=== PATIENT | female | born 1995 | race Two or more races ===

== ENCOUNTER 2019-11-07 17:42 | Emergency (ER) | payer MEDICAID ==
[2019-11-07] MEDS ORDERED: HYDROmorphone 0.5 MG/0.5 ML Syringe IVPUSH ONE ×2 (18:54→20:01)
[2019-11-07] MEDS ORDERED: Ondansetron 4 MG/2 ML SDV IVPUSH ONE (18:54)
[2019-11-07] MEDS ORDERED: Sodium Chloride 0.9% 10 ML Syringe FLUSH PRN ×2 (18:55→20:43)
[2019-11-07] MEDS ORDERED: Sodium Chloride 0.9% 1,000 ML IV SCH (19:00)
[2019-11-07] MEDS ORDERED: LORazepam 2 MG/ML SDV IVPUSH ONE (19:14)
--- NOTE | 2019-11-07 19:15 | EDM.PDOC ---
<Scarlett Palmer - Last Filed: 11/07/19 18:56> ED HPI GENERAL MEDICAL PROBLEM - General Chief Complaint: Chest Pain Stated Complaint: CHEST PAIN/HEAD PAIN Time Seen by Provider: 11/07/19 18:24 Source of Information: Reports: Patient History Limitations: Reports: No Limitations - History of Present Illness INITIAL COMMENTS - FREE TEXT/NARRATIVE: Patient is a pleasant 24-year-old female with a history of anxiety and migraines presents to the ED for migraine and chest pain. She reports that she has had a migraine headache all day and has been keeping it under control with Tylenol and Aleve. Then about an hour prior to arrival her migraine suddenly returned and was sharp, stabbing, and throbbing. The pain was not located in a specific area, rather the entire head. She rates the migraine at a 9/10 and states this is the worst migraine she has ever had. She states when the pain suddenly occurred her vision went blurry and has remained blurry for the past hour. When the migraine pain increased she developed chest pain. She states the chest pain started over the middle of her chest and now is radiating into bilateral axilla. It has been a constant, sharp 8/10 pain with spasms that increase the severity to 10/10 for 30-60 seconds. She says the spasm pain comes on suddenly and feels as if someone is squeezing her chest. The pain spasms more on the right than the left. Nausea developed when the migraine pain increased. She is not currently on any form of oral contraceptives. She thinks her last menstrual period was about a month ago, but is unsure since it is irregular. She states there could be a chance she is , but is unsure. Denies shortness of breath and recent illnesses. Middle Chest Pain Score (Numeric/FACES): 10 - Related Data Allergies Allergy/AdvReac Type Severity Reaction Status Date / Time amoxicillin Allergy Hives Verified 11/07/19 17:58 azithromycin [From Zithromax] Allergy Hives Verified 11/07/19 17:58 butalbital [From Fioricet] Allergy Hives Verified 11/07/19 17:58 caffeine [From Fioricet] Allergy Hives Verified 11/07/19 17:58 cephalexin [From Keflex] Allergy Hives Verified 11/07/19 17:58 clindamycin Allergy Hives Verified 02/19/20 17:58 diphenhydramine Allergy Burning Verified 11/07/19 17:58 [From Benadryl] ketorolac [From Toradol] Allergy Hives Verified 11/07/19 17:58 Penicillins Allergy Hives Verified 11/07/19 17:58 Home Meds: Home Meds QUEtiapine Fumarate [Seroquel] 200 mg PO BEDTIME 11/07/19 [History] Past Medical History HEENT History: Reports: None Cardiovascular History: Reports: None Respiratory History: Reports: None Gastrointestinal History: Reports: None STRATEGIC PLANNER History: Reports: None Musculoskeletal History: Reports: None Neurological History: Reports: None Psychiatric History: Reports: Anxiety Endocrine/Metabolic History: Reports: Obesity/BMI 30+ Hematologic History: Reports: None Immunologic History: Reports: None Oncologic (Cancer) History: Reports: None Dermatologic History: Reports: Other (See Below) Other Dermatologic History: 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 Denies: Fever, Chills, Weakness, Decreased Appetite HEENT: Reports: Vision Change (blurry). Denies: Ear Pain, Eye Pain, Throat Pain , Vertigo Respiratory: Reports: No Symptoms. Denies: Shortness of Breath, Cough Cardiovascular: Reports: Chest Pain (sternal that radiates to bilateral axilla) , Lightheadedness. Denies: Edema, Syncope GI/Abdominal: Reports: Nausea. Denies: Abdominal Pain, Diarrhea, Vomiting Musculoskeletal: Reports: No Symptoms. Denies: Neck Pain, Back Pain, Muscle Pain Skin: Reports: No Symptoms. Denies: Rash, Erythema Neurological: Reports: Headache (severe- generalized whole head). Denies: Dizziness, Numbness, Syncope, Tingling, Weakness Psychiatric: Reports: Anxiety ED EXAM, GENERAL - Physical Exam Exam: See Below Exam Limited By: No Limitations General Appearance: Alert, WD/WN, Mild Distress Eye Exam: Bilateral Eye: Normal Inspection, PERRL Nose: Normal Inspection, Normal Mucosa, No Blood Head: Atraumatic, Normocephalic. No: Facial Tenderness, Sinus Tenderness Neck: Normal Inspection, Supple, Non-Tender, Full Range of Motion Respiratory/Chest: No Respiratory Distress, Lungs Clear, Normal Breath Sounds, No Accessory Muscle Use, Chest Non-Tender Cardiovascular: Normal Peripheral Pulses, No Edema, No Murmur, No Rub, Tachycardia GI/Abdominal: Normal Bowel Sounds, Soft, Non-Tender, No Organomegaly, No Distention, No Mass Back Exam: Normal Inspection, Full Range of Motion, NT Extremities: Normal Inspection, Normal Range of Motion, Non-Tender, Normal Capillary Refill, No Pedal Edema Neurological: Alert, Oriented, Normal Cognition, Normal Gait, No Motor/Sensory Deficits Psychiatric: Normal Affect, Anxious Skin Exam: Warm, Dry, Intact, Normal Color, No Rash Lymphatic: No Adenopathy Course - Vital Signs Last Recorded V/S: Last Vital Signs Temp 98.4 F 11/07/19 17:51 Pulse 110 H 11/07/19 17:51 Resp 18 11/07/19 17:51 BP 131/87 11/07/19 17:51 Pulse Ox 98 11/07/19 17:51 - Orders/Labs/Meds Orders: Active Orders 24 hr Category Date Time Status EKG Documentation Completion [RC] STAT Care 11/07/19 18:24 Active EKG Documentation Completion [RC] STAT Care 11/07/19 18:54 Active Peripheral IV Care [RC] . DIRECTED Care 11/07/19 18:55 Active Peripheral IV Insertion Adult [OM.PC] Stat Oth 11/07/19 18:51 Ordered Labs: Laboratory Tests 11/07/19 11/07/19 11/07/19 Range/Units 19:47 19:47 19:47 WBC 9.92 (3.98-10.04) K/mm3 RBC 4.23 (3.98-5.22) M/mm3 Hgb 10.9 L (11.2-15.7) gm/dl Hct 34.6 (34.1-44.9) % MCV 81.8 (79.4-94.8) fl MCH 25.8 (25.6-32.2) pg MCHC 31.5 L (32.2-35.5) g/dl RDW Std Deviation 39.1 (36.4-46.3) fL Plt Count 346 (182-369) K/mm3 MPV 9.2 L (9.4-12.3) fl Neut % (Auto) 65.9 (34.0-71.1) % Lymph % (Auto) 26.5 (19.3-51.7) % [place] % (Auto) 6.5 (4.7-12.5) % Eos % (Auto) 0.7 (0.7-5.8) Baso % (Auto) 0.2 (0.1-1.2) % Neut # (Auto) 6.54 H (1.56-6.13) K/mm3 Lymph # (Auto) 2.63 (1.18-3.74) K/mm3 [place] # (Auto) 0.64 H (0.24-0.36) K/mm3 Eos # (Auto) 0.07 (0.04-0.36) K/mm3 Baso # (Auto) 0.02 (0.01-0.08) K/mm3 D-Dimer, Quantitative 1.73 H (0.19-0.50) mg/L Sodium 141 (136-145) mEq/L Potassium 3.8 (3.5-5.1) mEq/L Chloride 104 (98-107) mEq/L Carbon Dioxide 25 (21-32) mEq/L Anion Gap 15.8 H (5-15) BUN 18 (7-18) mg/dL Creatinine 0.9 (0.55-1.02) mg/dL Est Cr Clr Drug Dosing 76.23 mL/min Estimated GFR (MDRD) > 60 (>60) mL/min BUN/Creatinine Ratio 20.0 H (14-18) Glucose 105 (74-106) mg/dL Calcium 8.7 (8.5-10.1) mg/dL Total Bilirubin 0.2 (0.2-1.0) mg/dL AST 18 (15-37) U/L ALT 26 (14-59) U/L Alkaline Phosphatase 93 (46-116) U/L Troponin I < 0.017 (0.00-0.056) ng/mL Total Protein 7.4 (6.4-8.2) g/dl Albumin 3.2 L (3.4-5.0) g/dl Globulin 4.2 gm/dL Albumin/Globulin Ratio 0.8 L (1-2) Meds: Medications Discontinued Medications Generic Name Dose Route Start Last Admin Trade Name Freq PRN Reason Stop Dose Admin Diazepam 2.5 mg 11/07/19 20:57 11/07/19 21:06 Valium IVPUSH 11/07/19 20:58 2.5 mg ONETIME ONE Administration Fentanyl 50 mcg 11/07/19 20:29 11/07/19 20:37 Sublimaze IVPUSH 11/07/19 20:30 50 mcg ONETIME ONE Administration Hydromorphone HCl 0.5 mg 11/07/19 18:54 11/07/19 19:37 Dilaudid IVPUSH 11/07/19 18:55 0.5 mg ONETIME ONE Administration Hydromorphone HCl 0.5 mg 11/07/19 20:01 11/07/19 20:05 Dilaudid IVPUSH 11/07/19 20:02 0.5 mg ONETIME ONE Administration Sodium Chloride 1,000 mls @ 999 mls/hr 11/07/19 19:00 11/07/19 19:36 Normal Saline IV 999 mls/hr ASDIRECTED SLIME Administration Sodium Chloride 100 mls @ 3 mls/sec 11/07/19 20:45 11/07/19 21:00 Normal Saline IV 3 mls/sec ASDIRECTED SLIME Administration Iopamidol 100 ml 11/07/19 20:43 11/07/19 21:00 Isovue-370 (76%) IVPUSH 11/07/19 20:44 100 ml ONETIME ONE Administration Lorazepam 0.5 mg 11/07/19 19:14 11/07/19 19:37 Ativan IVPUSH 11/07/19 19:15 0.5 mg ONETIME ONE Administration Ondansetron HCl 4 mg 11/07/19 18:54 11/07/19 19:37 Zofran IVPUSH 11/07/19 18:55 4 mg ONETIME ONE Administration Sodium Chloride 10 ml 11/07/19 18:55 11/07/19 19:36 Saline Flush FLUSH 10 ml ASDIRECTED PRN Administration Keep Vein Open Sodium Chloride 10 ml 11/07/19 20:43 11/07/19 21:00 Saline Flush FLUSH 10 ml ASDIRECTED PRN Administration Keep Vein Open Departure - Departure Disposition: Home, Self-Care 01 Clinical Impression: Atypical chest pain Migraine Qualifiers: Migraine type: unspecified Status migrainosus presence: without status migrainosus Intractability: not intractable Qualified Code(s): G43.909 - Migraine, unspecified, not intractable, without status migrainosus Instructions: Chest Wall Pain, Migraine Headache Referrals: PCP,None [Primary Care Provider] - Forms: ED Department Discharge Additional Instructions: You were seen in the emergency department today for migraine, anxiety, and spasming chest pain. You work-up included blood work, EKG of your heart, chest x-ray, head CT, and a chest CT. The results of this testing was all normal Your symptoms were drastically improved by the medications that were given. You have been provided with [facility] prescription for Ativan, as well as Percocet. Use these medications as needed to treat your anxiety and pain. Do not drive after taking these medications as they are sedating. Do not take these medications at the same time as the combined effect may also be overly sedating. As we discussed, it is important for you to call to establish care with a primary care provider for ongoing management of your chronic migraines and other neurologic symptoms. If you should experience any worsening symptoms , please do not hesitate to return to the emergency department. Sepsis Event Note - Evaluation Sepsis Screening Result: No Definite Risk - Focused Exam Date Exam was Performed: 11/07/19 Time Exam was Performed: 18:56 - My Orders Last 24 Hours: My Active Orders 11/07/19 18:24 EKG Documentation Completion [RC] STAT 11/07/19 18:51 Peripheral IV Insertion Adult [OM.PC] Stat 11/07/19 18:54 EKG Documentation Completion [RC] STAT 11/07/19 18:55 Peripheral IV Care [RC] . DIRECTED - Assessment/Plan Last 24 Hours: My Active Orders 11/07/19 18:24 EKG Documentation Completion [RC] STAT 11/07/19 18:51 Peripheral IV Insertion Adult [OM.PC] Stat 11/07/19 18:54 EKG Documentation Completion [RC] STAT 11/07/19 18:55 Peripheral IV Care [RC] . DIRECTED <Marinelli,Bonny - Last Filed: 11/08/19 10:46> EKG INTERPRETATION EKG Date: 11/07/19 Time: 18:45 Rhythm: NSR Rate (Beats/Min): 89 [place]: Normal P-Wave: Present QRS: Normal ST-T: Normal QT: Normal EKG Interpretation Comments: Short RENEE EKG interpreted by Dr. Jessica MD. Course - Re-Assessments/Exams Free Text/Narrative Re-Assessment/Exam: I have examined the patient and agree with the HPI, ROS, and physical exam as documented by Scarlett, AIRFRAME TECHNICAL OFFICER student. 11/07/19 20:38 Patient verbalizes that her headache is now an 8 out of 10, however she has no improvement in the spasms in her chest. States that this time she is having left chest spasms radiating down her left leg, which is a change from previously as her spasms were previously in her right chest wall. After discussion, patient has had similar episodes in the past with her migraines where pain has shot down her bilateral legs. She says it pain is generally not is localized to the chest as it is this time. Reviewed possible treatment options of Haldol, Reglan, and Imitrex. She states that she has had all these medications in the past and that "they all made her "crazy ". Her d-dimer did come back elevated at 1.74. She denies any pain or swelling in her lower extremities. We will complete a CT angio of her chest to rule out a PE. I have also ordered fentanyl 50 mcg to be given now. 11/07/19 21:48 CT Angio of the chest was negative for any pulmonary emboli. Patient was also given Valium 2.5 mg IV to help with the muscle spasms. She verbalized substantial relief of symptoms with a combination of fentanyl and Valium. She does still have some mild chest wall tenderness, however her anxiety, headache and the spasms are much better. She feels comfortable being discharged at this time. I will discharge her home with [facility] prescription for Ativan and Percocets. She was provided with a list of primary care providers to call in the morning and schedule an appointment to establish care for ongoing treatment of her chronic migraines. Discharge instructions as documented. Departure - Departure Time of Disposition: 21:50 Condition: Fair Sepsis Event Note - Focused Exam Date Exam was Performed: 11/08/19 Time Exam was Performed: 10:44
--- NOTE | 2019-11-07 19:41 | CT ---
Head CT Technique: Multiple axial sections through the brain were obtained. Intravenous contrast was not utilized. Comparison: No intracranial imaging is available. Air-fluid levels are seen within both maxillary sinuses. Mild mucosal thickening is seen within the ethmoid sinuses. Ventricles along with basal cisterns and sulci over the convexities are within normal limits for the patient's age. No abnormal parenchymal densities are seen. No evidence of intracranial hemorrhage. No midline shift or mass effect is appreciated. Bone window settings were reviewed. No acute calvarial abnormality is appreciated. Mastoid sinuses are clear. Impression: 1. Findings within the paranasal sinuses as described above which are suspicious for acute sinusitis. 2. No acute intracranial abnormality is identified. Diagnostic code #3 Study was dictated in [place] Standard Time
--- NOTE | 2019-11-07 20:07 | CR ---
Chest: 2 views of the chest were obtained. Comparison: No prior chest x-ray is available. Heart size and mediastinum are normal. Lungs are clear. Bony structures are unremarkable. Impression: 1. Nothing acute is appreciated on 2 view chest x-ray. Diagnostic code #1 Study was dictated in [place] Standard Time
[2019-11-07] MEDS ORDERED: fentaNYL 100 MCG/2 ML SDV IVPUSH ONE (20:29)
[2019-11-07] MEDS ORDERED: Iopamidol 755 Mg/ML 100 ML Bottle IVPUSH ONE (20:43)
[2019-11-07] MEDS ORDERED: Sodium Chloride 0.9% 100 ML IV SCH (20:45)
--- NOTE | 2019-11-08 07:19 | CT ---
CT chest Technique: Multiple axial sections through the chest were obtained. Study has been performed as a pulmonary angiogram protocol. Intravenous contrast was therefore utilized. Comparison: Prior chest x-ray performed earlier on the same day (7:09 PM). Findings: Pulmonary arteries are well opacified. No filling defects are seen to indicate pulmonary embolism. Aorta shows no aneurysm. Mediastinum shows no adenopathy. Soft tissue density within the anterior mediastinum is likely due to residual thymic tissue. No pericardial thickening is seen. Visualized upper abdominal structures appear within normal limits. Lungs otherwise are clear. No acute parenchymal change is appreciated. Bone window settings were reviewed which appear within normal limits for the patient's age. Impression: 1. Nothing is seen to indicate pulmonary embolism. 2. No acute abnormality is appreciated on CT study of the chest. Diagnostic code #1 This report was dictated in [place] Standard Time I agree with preliminary report from [facility], finalized on 11/07/19, 10:27 PM Central Time
== END 2019-11-07 22:15 | disposition home or self-care (01) ==
LOC: JD.ED 17:42
DX: G43.909 Migraine, unspecified, not intractable, without status migrainosus (principal); R07.89 Other chest pain; F17.210 Nicotine dependence, cigarettes, uncomplicated; E66.9 Obesity, unspecified; Z68.31 Body mass index [BMI] 31.0-31.9, adult; Z88.0 Allergy status to penicillin; Z88.1 Allergy status to other antibiotic agents; Z88.8 Allergy status to other drugs, medicaments and biological substances; Z88.6 Allergy status to analgesic agent
CPT/HCPCS: 36415; 70450; 71046; 71275; 80053; 84484; 85025; 85379; 93005; 96361; 96374; 96375; 99285; J1170; J2060; J2405; J3010; J3360; J7030; J7050; Q9967; 93010; 99284

== ENCOUNTER 2019-11-12 23:02 | Emergency (ER) | payer SELFPAY ==
--- NOTE | 2019-11-13 00:27 | EDM.PDOC ---
ED HPI GENERAL MEDICAL PROBLEM - General Chief Complaint: Chest Pain Stated Complaint: CHEST PAIN Time Seen by Provider: 11/13/19 00:26 Source of Information: Reports: Patient History Limitations: Reports: No Limitations - History of Present Illness INITIAL COMMENTS - FREE TEXT/NARRATIVE: 24-year-old female presents of the ED with diffuse anterior chest wall pain. No known injuries. She states it came on about 6 days ago and was somewhat better with treatment with Percocet tablets and Ativan that were prescribed through the ED on November 07. Her medication ran out 2 days ago and the pain returned with a vengeance. She states it hurts to breathe everywhere. She had a full work-up done including a CT angiogram of her chest which was negative for blood clot in spite of a slightly elevated d-dimer. No other abnormalities were appreciated on cardiac monitoring etc. She reports the pain is sharp and stabbing at times and then leaves her with a dull diffuse aching discomfort across her entire chest particular in the central chest. She has no true odynophagia. There is been no reflux or vomiting. She has never had anything similar. She does admit to a chronic generalized anxiety disorder. Onset: Gradual Onset Date: 11/07/19 Duration: Day(s):, Constant, Getting Worse Location: Reports: Chest (Entire anterior chest even up to her shoulders. Nothing rating through to her back.) Quality: Reports: Pressure (Constant pressure across her anterior chest particular in the midline behind the sternum.), Sharp (Sharp and stabbing at times and comes in spasm or waves.), Stabbing Severity: Severe (The pain is 10 out of 10) Improves with: Reports: Other (Ports pain was pretty well gone with taking the Percocet and Ativan the last 4 days.) Worsens with: Reports: Breathing, Other Context: Denies: Activity, Exercise (Coughing), Lifting, Sick Contact, Trauma Associated Symptoms: Reports: Chest Pain, Loss of Appetite, Malaise, Shortness of Breath. Denies: No Other Symptoms, Confusion (See history of present illness ), Cough, cough w sputum, Diaphoresis, Fever/Chills, Headaches, Rash (States no shortness of breath is deep breathing makes the pain worse), Seizure, Syncope, Weakness Treatments JIGSAWYER: Reports: Acetaminophen, NSAIDS (Advil without any relief.) Chest Pain Score (Numeric/FACES): 10 - Related Data Allergies Allergy/AdvReac Type Severity Reaction Status Date / Time amoxicillin Allergy Hives Verified 11/12/19 23:10 azithromycin [From Zithromax] Allergy Hives Verified 11/12/19 23:10 butalbital [From Fioricet] Allergy Hives Verified 11/12/19 23:10 caffeine [From Fioricet] Allergy Hives Verified 11/12/19 23:10 cephalexin [From Keflex] Allergy Hives Verified 11/12/19 23:10 clindamycin Allergy Hives Verified 11/12/19 23:10 diphenhydramine Allergy Burning Verified 11/12/19 23:10 [From Benadryl] ketorolac [From Toradol] Allergy Hives Verified 11/12/19 23:10 Penicillins Allergy Hives Verified 11/12/19 23:10 Home Meds: Home Meds QUEtiapine Fumarate [Seroquel] 200 mg PO BEDTIME 11/07/19 [History] Diclofenac Sodium [Voltaren] 75 mg PO BIDMEALS #20 tab.cr 11/13/19 [Rx] LORazepam [Ativan] 1 mg PO TID PRN #30 tablet 11/13/19 [Rx] oxyCODONE HCl/Acetaminophen [Percocet 5-325 mg Tablet] 1 - 2 each PO Q4H PRN # 20 tablet 11/13/19 [Rx] predniSONE [Prednisone] 20 mg PO ASDIRECTED #21 tablet 11/13/19 [Rx] Past Medical History HEENT History: Reports: None Cardiovascular History: Reports: None Respiratory History: Reports: None Gastrointestinal History: Reports: None AREA ATTENDANT History: Reports: None Musculoskeletal History: Reports: None Neurological History: Reports: None Psychiatric History: Reports: Anxiety, Bipolar, Other (See Below) (Take Seroquel 200 mg at bedtime to help sleep) Endocrine/Metabolic History: Reports: Obesity/BMI 30+ Hematologic History: Reports: None Immunologic History: Reports: None Oncologic (Cancer) History: Reports: None Dermatologic History: Reports: Other (See Below) Other Dermatologic History: 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 Denies : Fever, Chills, Weight Loss HEENT: Reports: No Symptoms Respiratory: Reports: Shortness of Breath, Pleuritic Chest Pain, Other (Is sharp and stabbing in anterior chest and not necessarily pleuritic. It is made worse by deep breathing however. Otherwise the pain is a constant pressure sensation central chest and radiating towards the). Denies: Wheezing, Cough, Sputum, Hemoptysis Cardiovascular: Reports: Chest Pain. Denies: Edema, Lightheadedness, Orthopnea , Palpitations, PND, Syncope, Other Endocrine: Reports: Fatigue GI/Abdominal: Reports: Decreased Appetite : Reports: No Symptoms Musculoskeletal: Reports: Other (Bilateral anterior chest) Skin: Reports: No Symptoms ( wall pain) Neurological: Reports: No Symptoms, Headache Psychiatric: Reports: Anxiety (Prone to migraine headaches. Anxiety disorder.) Hematologic/Lymphatic: Reports: No Symptoms Immunologic: Reports: No Symptoms ED EXAM, GENERAL - Physical Exam Exam: See Below Exam Limited By: No Limitations General Appearance: Alert, WD/WN, Anxious, Severe Distress, Other (Reports chest pain is 10 out of 10 and unrelenting. Her presentation is fairly dramatic. Temperature is 36.3. Heart rate [address] [place] [address] rate is 18 with a blood pressure of 126/98. O2 sats 100% on room air.) Eye Exam: Bilateral Eye: Normal Inspection Throat/Mouth: Normal Inspection, Normal Lips, Normal Oropharynx Head: Atraumatic, Normocephalic Neck: Normal Inspection, Supple, Non-Tender, Full Range of Motion. No: Lymphadenopathy (L), Lymphadenopathy (R), Thyromegaly Respiratory/Chest: No Respiratory Distress, Lungs Clear, Normal Breath Sounds, No Accessory Muscle Use, Other (Has diffuse anterior chest wall pain in the midclavicular line ribs 2-7 bilaterally are intensely tender to touch. Maximal point of tenderness is rib 4 bilaterally and travels out to the anterior and mid axillary line by left is worse than the right. Bra use and she does not use underwire bra). No: Respiratory Distress Cardiovascular: Normal Peripheral Pulses, Regular Rate, Rhythm, No Edema, No Gallop, No Murmur, No Rub Peripheral Pulses: 3+: Carotid (L), Carotid (R), Posterior Tibial (L), Posterior Tibial (R), Dorsalis Pedis (L), Dorsalis Pedis (R) GI/Abdominal: Normal Bowel Sounds, Soft, Non-Tender, No Organomegaly, No Abnormal Bruit, No Mass, Pelvis Stable Back Exam: Normal Inspection, Full Range of Motion. No: CVA Tenderness (L), CVA Tenderness (R) Extremities: Normal Inspection, Normal Range of Motion, Non-Tender, No Pedal Edema Neurological: Alert, Oriented, CN II-XII Intact, Normal Cognition Psychiatric: Anxious Skin Exam: Warm, Dry, Intact, Normal Color, No Rash EKG INTERPRETATION EKG Date: 11/13/19 Time: 00:04 Rhythm: NSR Rate (Beats/Min): 100 [place]: Normal P-Wave: Enlarged QRS: Normal ST-T: Normal (Sitter left atrial hypertrophy.) QT: Normal EKG Interpretation Comments: Otherwise normal ECG Course - Vital Signs Last Recorded V/S: Last Vital Signs Temp 36.3 C 11/12/19 23:09 Pulse 109 H 11/12/19 23:09 Resp 18 11/12/19 23:09 BP 126/98 H 11/12/19 23:09 Pulse Ox 100 11/12/19 23:09 - Orders/Labs/Meds Orders: Active Orders 24 hr Category Date Time Status EKG Documentation Completion [RC] STAT Care 11/13/19 00:00 Active Chest 1V Frontal [CR] Stat Exams 11/12/19 23:59 Taken LORazepam [Ativan] Med 11/13/19 21:00 Active 1 mg PO BEDTIME Medication Orders Lorazepam (Ativan) 1 mg PO BEDTIME SLIME Meds: Medications Generic Name Dose Route Start Last Admin Trade Name Freq PRN Reason Stop Dose Admin Lorazepam 1 mg 11/13/19 21:00 Ativan PO BEDTIME SLIME Discontinued Medications Generic Name Dose Route Start Last Admin Trade Name Freq PRN Reason Stop Dose Admin Hydromorphone HCl 1.5 mg 11/13/19 00:52 11/13/19 01:02 Dilaudid IM 11/13/19 00:53 1.5 mg ONETIME ONE Administration Lorazepam Confirm 11/13/19 01:14 11/13/19 01:19 Ativan Administered 11/13/19 01:15 Not Given Dose 1 mg .ROUTE .STK-MED ONE Lorazepam 1 mg 11/13/19 01:18 11/13/19 01:19 Ativan PO 11/13/19 01:19 1 mg ONETIME ONE Administration Prednisone 30 mg 11/13/19 00:52 11/13/19 01:03 Prednisone PO 11/13/19 00:53 30 mg ONETIME ONE Administration Promethazine HCl 25 mg 11/13/19 00:53 11/13/19 01:03 Phenergan IM 11/13/19 00:54 25 mg ONETIME ONE Administration - Radiology Interpretation Free Text/Narrative:: 24-year-old female presents to the ED with diffuse anterior chest wall pain. Patient had presentation to the ED on November 07 with similar findings. She had an intensive work-up carried out by Bonny Marinelli nurse practitioner without any positive findings. She did have a mildly elevated d-dimer which precipitated a CT pulmonary angiogram which proved to be negative for any pulmonary emboli. On examination today her pain is definitely chest wall in origin with marked tenderness to touch on ribs 2-7 bilaterally with ribs 4 being the maximal point of tenderness bilaterally. Chest wall pain is seem to be worse on the left side as compared to the right. The left fourth rib pain extended out to the mid axillary line on the left side. Chest x-ray will be done and ECG to be done. I would not repeat labs as they were just done a few days ago. I think the cause of the pain is quite obvious on clinical examination. Will be given IM injection of Dilaudid 1.5 mg with Phenergan 25 mg IM for acute pain and nausea relief and anxiety relief. - Re-Assessments/Exams Free Text/Narrative Re-Assessment/Exam: 11/13/19 00:26 portable chest x-ray is within normal limits. ECG also reveals sinus rhythm at 100/min with no abnormalities. 11/13/19 01:!0: Be given prednisone 30 mg by mouth now to try and alleviate the inflammation in her anterior chest wall. Prescription will be written for prednisone 20 mg twice daily for 7 days and then 1 tab in the morning for another 7 days since her pain and inflammation seem to be so severe. Prescription also written for Voltaren 75 mg twice daily with food for the next 10 days to relieve pain and inflammation. Prescription written also for Ativan 1 mg to be taken every 8 hours as needed for anxiety relief. Will also receive Percocet tabs 5/325 mg tabs 1-2 every 4-6 hours as necessary for pain relief for the next 3 to 4 days until the anti-inflammatories become effective. Advised follow-up with her primary care physician in 7 to 10 days time. Departure - Departure Time of Disposition: : Disposition: Home, Self-Care 01 Condition: Fair Clinical Impression: Non-cardiac chest pain, Acute chest wall pain Prescriptions: Diclofenac Sodium [Voltaren] 75 mg PO BIDMEALS #20 tab.cr LORazepam [Ativan] 1 mg PO TID PRN #30 tablet PRN Reason: anxiety relief oxyCODONE HCl/Acetaminophen [Percocet 5-325 mg Tablet] 1 - 2 each PO Q4H PRN # 20 tablet PRN Reason: pain relief. predniSONE [Prednisone] 20 mg PO ASDIRECTED #21 tablet Instructions: Chest Wall Pain, [id number], Nonspecific Chest Pain, Easy-to- Read Referrals: PCP,None [Primary Care Provider] - Forms: ED Department Discharge Additional Instructions: Evaluation in the emergency room night in regards to diffuse anterior chest wall pain. You have point tenderness on palpation of ribs 2-7 bilaterally in the midclavicular line indicating significant inflammation of the lining of the ribs called the periosteum. This is almost always a viral cause calls by either echovirus or coxsackievirus infection. It is often associate with sharp stabbing chest pains with a dull aching pressure discomfort left afterwards. Will be aggravated by deep breathing or exercise. X-ray done once again tonight is negative for any obvious inflammation or abnormalities in the ribs heart or lungs. ECG or heart tracing was also completely normal with no signs of inflammation of the heart lining. Examanation was found to be very tender of the anterior chest. Treated in the ED with intramuscular injection of Dilaudid and Phenergan to relieve acute pain and to facilitate some sleep tonight. First dose of prednisone was given in the ED 30 mg. To continue this medication 20 mg twice daily with breakfast and supper for 7 days and then once in the morning only for another 7 days to reduce the inflammation in the lining of the ribs of your chest wall. You will also need to take anti-inflammatory Voltaren 75 mg with breakfast and supper for the next 10 days to relieve pain and inflammation in the chest wall as well. I have written a prescription for Ativan tablets 1 mg every 8 hours as needed for relief of anxiety. The symptoms last longer than 10 to 12 days that you need to follow-up with your primary care physician.May use Percocet tabs 5/325mg--1-2 tabs every 4-6 hours as needed for relief of pain until the anti-inflammatories become effective. Suggest follow-up with your primary care physician in 7-10 days time to make sure that you are on the mend. Sepsis Event Note - Evaluation Sepsis Screening Result: No Definite Risk - Focused Exam Vital Signs: Vital Signs Temp Pulse Resp BP Pulse Ox 11/12/19 23:09 36.3 C 109 H 18 126/98 H 100 Date Exam was Performed: 11/13/19 Time Exam was Performed: 01:36 - My Orders Last 24 Hours: My Active Orders 11/12/19 23:59 Chest 1V Frontal [CR] Stat 11/13/19 00:00 EKG Documentation Completion [RC] STAT 11/13/19 21:00 LORazepam [Ativan] 1 mg PO BEDTIME - Assessment/Plan Last 24 Hours: My Active Orders 11/12/19 23:59 Chest 1V Frontal [CR] Stat 11/13/19 00:00 EKG Documentation Completion [RC] STAT 11/13/19 21:00 LORazepam [Ativan] 1 mg PO BEDTIME
[2019-11-13] MEDS ORDERED: HYDROmorphone 1 MG/ML Syringe IM ONE (00:52)
[2019-11-13] MEDS ORDERED: predniSONE 20 MG Tab PO ONE (00:52)
[2019-11-13] MEDS ORDERED: Promethazine 25 MG/ML SDV IM ONE (00:53)
[2019-11-13] MEDS ORDERED: LORazepam 1 MG Tab ONE (01:14)
[2019-11-13] MEDS ORDERED: LORazepam 1 MG Tab PO ONE (01:18)
--- NOTE | 2019-11-13 07:08 | CR ---
Chest: Portable view of the chest was obtained. Comparison: No prior chest imaging. Heart size and mediastinum are normal. Lungs are clear with no acute parenchymal change. Bony structures are grossly intact. Impression: 1. Nothing acute is appreciated on portable chest x-ray. Diagnostic code #1 This report was dictated in [place] Standard Time
[2019-11-13] MEDS ORDERED: LORazepam 1 MG Tab PO SCH (21:00)
== END 2019-11-13 01:24 | disposition home or self-care (01) ==
LOC: JD.ED 23:02
DX: R07.89 Other chest pain (principal); F17.210 Nicotine dependence, cigarettes, uncomplicated; E66.9 Obesity, unspecified; Z88.0 Allergy status to penicillin; Z88.1 Allergy status to other antibiotic agents; Z88.6 Allergy status to analgesic agent; Z79.899 Other long term (current) drug therapy
CPT/HCPCS: 71045; 93005; 96372; 99285; A9270; J1170; J2550; 93010; 99284

== ENCOUNTER 2019-11-18 19:00 | Emergency (ER) | payer MEDICAID ==
[2019-11-18] MEDS ORDERED: HYDROmorphone 1 MG/ML Syringe IVPUSH STA (19:29)
[2019-11-18] MEDS ORDERED: Ondansetron 4 MG/2 ML SDV IVPUSH ONE (19:29)
[2019-11-18] MEDS ORDERED: LORazepam 2 MG/ML SDV IVPUSH STA ×2 (19:30→21:52)
[2019-11-18] MEDS ORDERED: Sodium Chloride 0.9% 1,000 ML IV SCH (19:30)
--- NOTE | 2019-11-18 19:38 | EDM.PDOC ---
ED HPI GENERAL MEDICAL PROBLEM - General Chief Complaint: General Stated Complaint: PELVIC PAIN HEADACHE NAUSEA Time Seen by Provider: 11/18/19 19:15 Source of Information: Reports: Patient, Family () History Limitations: Reports: No Limitations - History of Present Illness INITIAL COMMENTS - FREE TEXT/NARRATIVE: Ms. Jerome is a 24-year-old woman with a past medical history significant for anxiety and bipolar affective disorder, who states that she developed pelvic pain around 02:30 this morning. She describes the pain as stabbing. She states that it is constant, but made worse with walking or sitting. She states that it feels a lot like menstrual cramps, only she is not on her menstrual period. She also developed a headache, nausea, and vomiting around noon. Her headache is felt across her forehead, and is throbbing in character. She also reports "extreme anxiety". No recent fever, chills, constipation, diarrhea, or urinary symptoms. No recent vaginal itch or discharge. No prior similar symptoms. The patient does not know when her LMP was - likely sometime in October. She states that she had a negative home test about 2 weeks ago. The patient last ate around 8 AM. Here in the ED, the patient is barely able to move or walk, claiming extreme pain. She is tachycardic at 128 bpm, but is otherwise hemodynamically stable, afebrile, saturating 99% on room air. The patient does not have a PCP. She received an influenza vaccine this season. Lower Pelvic Pain Score (Numeric/FACES): 10 - Related Data Allergies Allergy/AdvReac Type Severity Reaction Status Date / Time amoxicillin Allergy Hives Verified 11/12/19 23:10 azithromycin [From Zithromax] Allergy Hives Verified 11/12/19 23:10 butalbital [From Fioricet] Allergy Hives Verified 11/12/19 23:10 caffeine [From Fioricet] Allergy Hives Verified 11/12/19 23:10 cephalexin [From Keflex] Allergy Hives Verified 11/12/19 23:10 clindamycin Allergy Hives Verified 11/12/19 23:10 diphenhydramine Allergy Burning Verified 11/12/19 23:10 [From Benadryl] ketorolac [From Toradol] Allergy Hives Verified 11/12/19 23:10 Penicillins Allergy Hives Verified 11/12/19 23:10 Home Meds: Home Meds QUEtiapine Fumarate [Seroquel] 200 mg PO BEDTIME 11/07/19 [History] Diclofenac Sodium [Voltaren] 75 mg PO BIDMEALS #20 tab.cr 11/13/19 [Rx] LORazepam [Ativan] 1 mg PO TID PRN #30 tablet 11/13/19 [Rx] oxyCODONE HCl/Acetaminophen [Percocet 5-325 mg Tablet] 1 - 2 each PO Q4H PRN # 20 tablet 11/13/19 [Rx] predniSONE [Prednisone] 20 mg PO ASDIRECTED #21 tablet 11/13/19 [Rx] Past Medical History Genitourinary History: Reports: Renal Calculus Neurological History: Reports: Other (See Below) (Headaches that she calls migraines) Psychiatric History: Reports: Anxiety, Bipolar Endocrine/Metabolic History: Reports: Obesity/BMI 30+ - Infectious Disease History Infectious Disease History: Reports: MRSA - Past Surgical History HEENT Surgical History: Reports: Tonsillectomy Female Surgical History: Reports: D&C (x 2) Dermatological Surgical History: Reports: Other (See Below) (I & D left leg) Social & Family History - Tobacco Use Smoking Status *Q: Light Tobacco Smoker Years of Tobacco use: 10 Packs/Tins Daily: 0.1 Packs/Tins Daily Comment: Down from 1 ppd - Caffeine Use Caffeine Use: Reports: Coffee, Soda - Alcohol Use Alcohol Use History: No - Recreational Drug Use Recreational Drug Use: Yes Drug Use in Last 12 Months: No Recreational Drug Type: Reports: Marijuana/Hashish (last smoked 2015) - Living Situation & Occupation Living situation: Reports: , with Spouse, with Family (3 kids) Occupation: Unemployed ED ROS GENERAL - Review of Systems Review Of Systems: Comprehensive ROS is negative, except as noted in HPI. ED EXAM, GENERAL - Physical Exam Exam: See Below Exam Limited By: No Limitations General Appearance: Alert, WD/WN, Anxious Eye Exam: Bilateral Eye: EOMI, Normal Inspection Ears: Normal External Exam, Hearing Grossly Normal Nose: Normal Inspection Throat/Mouth: Normal Inspection, Normal Lips, Normal Voice, No Airway Compromise Head: Atraumatic, Normocephalic Neck: Normal Inspection, Full Range of Motion Respiratory/Chest: No Respiratory Distress, Lungs Clear, Normal Breath Sounds, No Accessory Muscle Use Cardiovascular: Normal Peripheral Pulses, Regular Rate, Rhythm, No Edema, No Gallop, No JVD, No Murmur, No Rub Peripheral Pulses: 4+: Radial (L), Radial (R) GI/Abdominal: Normal Bowel Sounds, Soft, No Organomegaly, No Distention, No Abnormal Bruit, No Mass, Tender (Primarily in the lower abdomen/suprapubic region, but palpation of the upper abdomen induces pain in the lower abdomen, as well), Other (Protruberant) (Female) Exam: Deferred Rectal (Female) Exam: Deferred Back Exam: Normal Inspection, Full Range of Motion, CVA Tenderness (R) (lower only). No: CVA Tenderness (L) Extremities: Normal Inspection, Normal Range of Motion, No Pedal Edema, Normal Capillary Refill Neurological: Alert, Oriented, Normal Cognition, No Motor/Sensory Deficits Psychiatric: Anxious Skin Exam: Warm, Dry, Intact, Normal Color, No Rash Course - Vital Signs Last Recorded V/S: Last Vital Signs Temp 36.4 C 11/18/19 19:19 Pulse 128 H 11/18/19 19:19 Resp 20 11/18/19 19:19 BP 108/75 11/18/19 19:19 Pulse Ox 99 11/18/19 19:19 - Orders/Labs/Meds Labs: Laboratory Tests 11/18/19 11/18/19 11/18/19 Range/Units 20:00 20:00 20:25 WBC 15.13 H (3.98-10.04) K/mm3 RBC 4.53 (3.98-5.22) M/mm3 Hgb 11.6 (11.2-15.7) gm/dl Hct 38.2 (34.1-44.9) % MCV 84.3 (79.4-94.8) fl MCH 25.6 (25.6-32.2) pg MCHC 30.4 L (32.2-35.5) g/dl RDW Std Deviation 43.0 (36.4-46.3) fL Plt Count 291 (182-369) K/mm3 MPV 9.2 L (9.4-12.3) fl Neutrophils % (Manual) 92 H (40-60) % Band Neutrophils % 0 (0-10) % Lymphocytes % (Manual) 4 L (20-40) % Atypical Lymphs % 0 % Monocytes % (Manual) 3 (2-10) % Eosinophils % (Manual) 1 (0.7-5.8) % Basophils % (Manual) 0 L (0.1-1.2) Toxic Granulation Few Platelet Estimate Adequate Plt Morphology Comment Normal Anisocytosis 1+ slight RBC Morph Comment Not Reportable Sodium 138 (136-145) mEq/L Potassium 3.9 (3.5-5.1) mEq/L Chloride 100 (98-107) mEq/L Carbon Dioxide 28 (21-32) mEq/L Anion Gap 13.9 (5-15) BUN 16 (7-18) mg/dL Creatinine 0.9 (0.55-1.02) mg/dL Est Cr Clr Drug Dosing TNP Estimated GFR (MDRD) > 60 (>60) mL/min BUN/Creatinine Ratio 17.8 (14-18) Glucose 109 H (74-106) mg/dL Calcium 9.3 (8.5-10.1) mg/dL Total Bilirubin 0.3 (0.2-1.0) mg/dL AST 22 (15-37) U/L ALT 29 (14-59) U/L Alkaline Phosphatase 109 (46-116) U/L Total Protein 8.1 (6.4-8.2) g/dl Albumin 3.7 (3.4-5.0) g/dl Globulin 4.4 gm/dL Albumin/Globulin Ratio 0.8 L (1-2) Urine Color Yellow (Yellow) Urine Appearance Clear (Clear) Urine pH 8.5 H (5.0-8.0) Ur Specific [place] 1.020 (1.005-1.030) Urine Protein 1+ H (Negative) Urine Glucose (UA) Negative (Negative) Urine Ketones Negative (Negative) Urine Occult Blood Negative (Negative) Urine Nitrite Negative (Negative) Urine Bilirubin Negative (Negative) Urine Urobilinogen 0.2 (0.2-1.0) Ur Leukocyte Esterase Negative (Negative) Urine RBC Not seen (0-5) /hpf Urine WBC 0-5 (0-5) /hpf Ur Squamous Epith Cells 0-5 (0-5) /hpf Urine Bacteria Not seen (FEW) /hpf Urine Mucus Few (FEW) /hpf Urine HCG, Qual (NEGATIVE) 11/18/19 Range/Units 20:25 WBC (3.98-10.04) K/mm3 RBC (3.98-5.22) M/mm3 Hgb (11.2-15.7) gm/dl Hct (34.1-44.9) % MCV (79.4-94.8) fl MCH (25.6-32.2) pg MCHC (32.2-35.5) g/dl RDW Std Deviation (36.4-46.3) fL Plt Count (182-369) K/mm3 MPV (9.4-12.3) fl Neutrophils % (Manual) (40-60) % Band Neutrophils % (0-10) % Lymphocytes % (Manual) (20-40) % Atypical Lymphs % % Monocytes % (Manual) (2-10) % Eosinophils % (Manual) (0.7-5.8) % Basophils % (Manual) (0.1-1.2) Toxic Granulation Platelet Estimate Plt Morphology Comment Anisocytosis RBC Morph Comment Sodium (136-145) mEq/L Potassium (3.5-5.1) mEq/L Chloride (98-107) mEq/L Carbon Dioxide (21-32) mEq/L Anion Gap (5-15) BUN (7-18) mg/dL Creatinine (0.55-1.02) mg/dL Est Cr Clr Drug Dosing Estimated GFR (MDRD) (>60) mL/min BUN/Creatinine Ratio (14-18) Glucose (74-106) mg/dL Calcium (8.5-10.1) mg/dL Total Bilirubin (0.2-1.0) mg/dL AST (15-37) U/L ALT (14-59) U/L Alkaline Phosphatase (46-116) U/L Total Protein (6.4-8.2) g/dl Albumin (3.4-5.0) g/dl Globulin gm/dL Albumin/Globulin Ratio (1-2) Urine Color (Yellow) Urine Appearance (Clear) Urine pH (5.0-8.0) Ur Specific [place] (1.005-1.030) Urine Protein (Negative) Urine Glucose (UA) (Negative) Urine Ketones (Negative) Urine Occult Blood (Negative) Urine Nitrite (Negative) Urine Bilirubin (Negative) Urine Urobilinogen (0.2-1.0) Ur Leukocyte Esterase (Negative) Urine RBC (0-5) /hpf Urine WBC (0-5) /hpf Ur Squamous Epith Cells (0-5) /hpf Urine Bacteria (FEW) /hpf Urine Mucus (FEW) /hpf Urine HCG, Qual Negative (NEGATIVE) Meds: Medications Discontinued Medications Generic Name Dose Route Start Last Admin Trade Name Freq PRN Reason Stop Dose Admin Hydromorphone HCl 1 mg 11/18/19 19:29 11/18/19 20:07 Dilaudid IVPUSH 11/18/19 19:30 1 mg ONETIME STA Administration Hydromorphone HCl 1 mg 11/18/19 20:35 11/18/19 20:44 Dilaudid IVPUSH 11/18/19 20:36 1 mg ONETIME ONE Administration Hydromorphone HCl 1 mg 11/18/19 21:52 11/18/19 21:58 Dilaudid IVPUSH 11/18/19 21:53 1 mg ONETIME ONE Administration Sodium Chloride 1,000 mls @ 150 mls/hr 11/18/19 19:30 11/18/19 20:06 Normal Saline IV 150 mls/hr ASDIRECTED SLIME Administration Iopamidol 100 ml 11/18/19 20:51 11/18/19 20:59 Isovue-300 (61%) IVPUSH 11/18/19 20:52 100 ml ONETIME ONE Administration Lorazepam 1 mg 11/18/19 19:30 11/18/19 20:06 Ativan IVPUSH 11/18/19 19:31 1 mg ONETIME STA Administration Lorazepam 1 mg 11/18/19 21:52 11/18/19 21:57 Ativan IVPUSH 11/18/19 21:53 1 mg ONETIME STA Administration Ondansetron HCl 4 mg 11/18/19 19:29 11/18/19 20:06 Zofran IVPUSH 11/18/19 19:30 4 mg ONETIME ONE Administration Sodium Chloride 10 ml 11/18/19 20:51 11/18/19 21:00 Saline Flush FLUSH 10 ml ONETIME PRN Administration KEEP VEIN OPEN - Re-Assessments/Exams Free Text/Narrative Re-Assessment/Exam: 11/18/19 19:32 The etiology of the patient's lower abdominal pain is not immediately clear. Even the patient describes it as similar to menstrual cramps, however, the patient is not currently on her menstrual period. She has active bowel sounds, and her abdomen is soft to palpation. She is most tender in her lower abdomen/ suprapubic region, but palpation to her upper abdomen induces pain in the lower abdomen as well, and she also reports some lower right CVA tenderness. No urinary symptoms, and she denies any vaginal itching or discharge. I have ordered a work-up that includes blood work, a urinalysis, a urine test , and a CT scan of her abdomen and pelvis with oral and IV contrast. In the meantime, the patient will be given both IV Dilaudid and IV Ativan, since she is also reporting feeling extremely anxious, IV Zofran, and IV fluid. 11/18/19 20:36 Notified by CHIRAG Davila that the IV Dilaudid and IV Ativan that the patient received did not touch her pain. I have ordered additional IV Dilaudid. 11/18/19 21:37 The patient CBC is remarkable for a WBC count elevated at 15.13, but with 0% bandemia. The remainder of her CBC is unremarkable. Her CMP is remarkable for a blood glucose mildly elevated at 109, and is otherwise unremarkable. Her urinalysis is unremarkable. Her urine test is negative. CT of the abdomen and pelvis results still pending. 11/18/19 21:52 Notified by CHIRAG Davila, that the patient's boyfriend notified her that the patient is in excruciating pain and is also having a panic attack. I have ordered additional IV Dilaudid 1 mg and IV Ativan 1 mg. 11/18/19 22:14 CT of the abdomen and pelvis with oral and IV contrast as read by vRjacquelin as: 1. Mild constipation. 2. No acute inflammatory process or obstruction. 3. Small nonspecific ovarian cyst. No hydrosalpinx or masses. 4. Borderline splenomegaly. No adenopathy or inflammatory changes are seen. Reviewing the patient's prior medical records, I see that the patient has been seen in this ED on 2 prior occasions, on 11/07/2019 and 11/12/2019. On her 2019 visit, she was here for a headache and chest pain. She received 2.5 mg Valium, 50 mcg fentanyl, 1 mg of Dilaudid, and 0.5 mg of Ativan. Her work-up was entirely unremarkable. On her 11/12/19 visit, she was here for anterior chest pain. She was given 1.5 mg Dilaudid and 1 mg of Ativan. Her work-up was entirely unremarkable. She was then discharged home with a prescription for 30 tablets of Ativan 1 mg and 20 tablets of Percocet 5/325. She is now back with lower abdominal pain, has received 3 mg of Dilaudid, 2 mg of Ativan, and again, her work-up was entirely unremarkable. She states that she is allergic to Toradol. Reviewing the [place] PMPi, I see that the patient has 47 prescriptions for controlled substances by 26 different prescribers, filled at 13 different pharmacies over the past 3 years. Most were written by prescribers in [place] , but some in [place]. Her overdose risk score is 640. 11/18/19 22:43 Test results discussed with the patient and her . The patient states that her pain is adequately controlled, but this time she is barely able to keep her eyes open or lift her head from the pillow. She appears to be sedated/ intoxicated. Very clearly, the patient has been drug-seeking. I will discharge her home once she is awake enough to be able to walk. 11/18/19 22:48 Notified by CHIRAG Davila that the patient's came out and requested a muscle relaxer for the patient. I don't believe that is safe. It is clear that the patient came here seeking controlled substances, and that she got what she wanted, but at this time I am concerned that she is so intoxicated that adding any other sedating medications could result in respiratory depression. 11/18/19 23:00 Notified by CHIRAG Davila that the patient was insisting that she be given a Rx for Tramadol, or something like it, to help with her pain. I went to talk to the patient and her . I again explained that I am concerned about prescribing tramadol or muscle relaxant, given that her work-up today, as well as her 2 previous work-ups, were unremarkable, yet she required large doses of opioids and benzodiazepines. She stated that while that was true, the Percocet that she was prescribed on 09/11/2020 "didn't do anything". I asked her if she had been on opioids or frequently prescribed opioids prior to moving here 2 weeks ago. She stated that the only time she had been on opioids was for 4 days , following a surgery. I then presented her the [place] PMPi sheets, showing frequent prescriptions for both opioids and benzodiazepines going back to 2016 (the farthest back I can look). The patient tried to tell me that the forms were wrong, and that it was not her, even though she acknowledged that she lived where those prescriptions were filled. The patient stated that if I do not prescribe something for her now, she will simply come back at 2 AM. I will still be working. 11/18/19 23:20 Notified by CHIRAG Amaral, that the patient signed her discharge papers "F*ck you ". Departure - Departure Time of Disposition: 22:45 Disposition: Home, Self-Care 01 Condition: Good Clinical Impression: Drug-seeking behavior - Discharge Information *PRESCRIPTION DRUG MONITORING PROGRAM REVIEWED*: Yes *COPY OF PRESCRIPTION DRUG MONITORING REPORT IN PATIENT CLAIR: Yes Instructions: General Headache Without Cause, Nausea and Vomiting, Adult, Easy- to-Read, Pelvic Pain, Female Referrals: Kurt Mao MD [Physician] - Forms: ED Department Discharge Additional Instructions: You were seen in the emergency room for pelvic pain, nausea, vomiting, and a headache. Work-up in the ER included blood work, a urinalysis, a urine test, and a CT scan of your abdomen and pelvis with oral and IV contrast. Your entire work-up was unremarkable, and does not explain the cause of your pain. We recommend that you follow-up with Dr. Kurt Mercedes, or one of the other providers in the clinic, at the next available appointment. If any other problems, please do not hesitate to return to the ER. Sepsis Event Note - Evaluation Sepsis Screening Result: No Definite Risk - Focused Exam Date Exam was Performed: 11/19/19 Time Exam was Performed: 07:58
[2019-11-18] MEDS ORDERED: HYDROmorphone 1 MG/ML Syringe IVPUSH ONE ×2 (20:35→21:52)
[2019-11-18] MEDS ORDERED: Iopamidol 612 MG/ML 100 ML Bottle IVPUSH ONE (20:51)
[2019-11-18] MEDS ORDERED: Sodium Chloride 0.9% 10 ML Syringe FLUSH PRN (20:51)
--- NOTE | 2019-11-19 07:03 | CT ---
CT abdomen and pelvis Technique: Multiple axial sections were obtained from above the dome of the diaphragm inferiorly through the pubic symphysis. Intravenous and oral contrast was utilized. Delayed images were obtained through the bladder. Comparison: No prior abdominal imaging is available. Findings: Visualized lung bases show nothing acute. Liver contains no focal parenchymal abnormality. Spleen measures at the upper limits of normal at 12.9 cm in length. Adrenal glands show no nodule. Pancreas is within normal limits. Gallbladder contains no calcified gallstones. Kidneys show symmetric contrast enhancement without hydronephrosis or mass. Aorta shows no aneurysm. No retroperitoneal adenopathy or mesenteric abnormalities are seen. No pelvic mass or adenopathy is seen. Mild increased stool noted throughout the colon. Appendix is seen which is normal in size. No free fluid or inflammatory change is identified. Very small fat-containing umbilical hernia is noted. Delayed images show contrast within the distal ureters and within the bladder. Bone window settings were reviewed. Mild scoliosis is noted. No acute osseous finding is appreciated. Impression: 1. Spleen size measures at the upper limits of normal. 2. Mild increased stool throughout the colon. 3. No acute abnormality is appreciated on CT study of the abdomen and pelvis. Diagnostic code #2 This report was dictated in [place] Standard Time I agree with preliminary report from [facility], finalized on 11/18/19, 10:52 PM Central Time
== END 2019-11-18 23:06 | disposition home or self-care (01) ==
LOC: JD.ED 19:00
DX: Z76.5 Malingerer [conscious simulation] (principal); R51 Headache; R11.2 Nausea with vomiting, unspecified; R10.2 Pelvic and perineal pain; F41.9 Anxiety disorder, unspecified; E66.9 Obesity, unspecified; F17.210 Nicotine dependence, cigarettes, uncomplicated; Z88.1 Allergy status to other antibiotic agents; Z88.0 Allergy status to penicillin; Z88.8 Allergy status to other drugs, medicaments and biological substances; Z79.899 Other long term (current) drug therapy
CPT/HCPCS: 36415; 74177; 80053; 81001; 81025; 85007; 85027; 96361; 96374; 96375; 96376; 99284; J1170; J2060; J2405; J7030; Q9967; 99283

== ENCOUNTER 2020-03-26 00:22 | Emergency (ER) | payer MEDICAID ==
--- NOTE | 2020-03-26 01:36 | EDM.PDOC ---
ED HPI GENERAL MEDICAL PROBLEM - General Chief Complaint: Lower Extremity Injury/Pain Stated Complaint: RIGHT ANKLE PAIN Time Seen by Provider: 03/26/20 00:52 Source of Information: Reports: Patient, Family () History Limitations: Reports: Altered Mental Status (The patient is clearly under the influence of something) - History of Present Illness INITIAL COMMENTS - FREE TEXT/NARRATIVE: Mrs. Jerome is a 24-year-old woman with a past medical history significant for anxiety, treated with both clonazepam and lorazepam, and untreated bipolar affective disorder, who now presents to the ED with medial right ankle pain, swelling, and erythema, that she states developed about 3 to 4 days ago. She denies sustaining any injury, and denies having any prior similar symptoms to her ankle or elsewhere. She states that she has not been outside, and states that there is no way that she was bitten by an insect. She states that the erythema increased for the first couple of days, and has decreased since; she pen demarcated the area a couple of days ago. No associated fever. She states that she has taken Tylenol and Aleve to treat her pain, with inadequate results. She states that she has rested and elevated her right ankle. Here in the ED, the patient is found to be lethargic, having difficulty keeping her eyes open, and she is slurring her speech. The patient tells me that she is not lethargic, rather, the reason she seems that way is because the only way that she can deal with the severe pain is to put herself into a trance. The patient's stated that she must have taken her evening pills prior to coming to the ED. She is tachycardic at 107 bpm, otherwise, she is hemodynamically stable, afebrile, saturating 100% on room air. Other than her ankle complaint, the patient denies recent fever, chills, sore throat, ear pain, nasal or sinus congestion, cough, dyspnea, chest pain, palpitations, nausea, vomiting, constipation, diarrhea, abdominal pain, urinary symptoms, recent weight gain or weight loss, recent bloody bowel movements or black bowel movements, headaches, or rashes. The patient does not have a PCP. Her Psychologist is Alyce Avila NP, at [facility]. Treatments BANK CASHIER: Reports: Acetaminophen, NSAIDS Right Ankle Pain Score (Numeric/FACES): 8 - Related Data Allergies Allergy/AdvReac Type Severity Reaction Status Date / Time amoxicillin Allergy Hives Verified 11/12/19 23:10 azithromycin [From Zithromax] Allergy Hives Verified 11/12/19 23:10 butalbital [From Fioricet] Allergy Hives Verified 11/12/19 23:10 caffeine [From Fioricet] Allergy Hives Verified 11/12/19 23:10 cephalexin [From Keflex] Allergy Hives Verified 11/12/19 23:10 clindamycin Allergy Hives Verified 11/12/19 23:10 diphenhydramine Allergy Burning Verified 11/12/19 23:10 [From Benadryl] ketorolac [From Toradol] Allergy Hives Verified 11/12/19 23:10 Penicillins Allergy Hives Verified 11/12/19 23:10 Home Meds: Home Meds QUEtiapine Fumarate [Seroquel] 200 mg PO BEDTIME 11/07/19 [History] Diclofenac Sodium [Voltaren] 75 mg PO BIDMEALS #20 tab.cr 11/13/19 [Rx] LORazepam [Ativan] 1 mg PO TID PRN #30 tablet 11/13/19 [Rx] oxyCODONE HCl/Acetaminophen [Percocet 5-325 mg Tablet] 1 - 2 each PO Q4H PRN #20 tablet 11/13/19 [Rx] predniSONE [Prednisone] 20 mg PO ASDIRECTED #21 tablet 11/13/19 [Rx] Doxycycline [Vibra-Tabs] 1 tab PO Q12HR #14 tab 03/26/20 [Rx] Past Medical History Genitourinary History: Reports: Renal Calculus Psychiatric History: Reports: Anxiety, Bipolar (untreated) - Infectious Disease History Infectious Disease History: Reports: MRSA - Past Surgical History HEENT Surgical History: Reports: Tonsillectomy Female Surgical History: Reports: D&C (x 2) Dermatological Surgical History: Reports: Other (See Below) (I & D left leg for MRSA infection) Social & Family History - Tobacco Use Smoking Status *Q: Current Some Day Smoker Years of Tobacco use: 10 Packs/Tins Daily: 0.1 Packs/Tins Daily Comment: Down from 09/20 ppd - Caffeine Use Caffeine Use: Reports: None - Alcohol Use Alcohol Use History: No - Recreational Drug Use Recreational Drug Use: No - Living Situation & Occupation Living situation: Reports: , with Spouse Occupation: Unemployed Review of Systems - Review of Systems Review Of Systems: Comprehensive ROS is negative, except as noted in HPI. ED EXAM, GENERAL - Physical Exam Exam: See Below Exam Limited By: Intoxication General Appearance: WD/WN, No Apparent Distress, Lethargic (Slurred speech, difficulty keeping eyes open) Extremities: Other (The medial aspect of the right ankle is erythematous, measuring approximately 6 cm in diameter, associated with mild swelling, but minimal associated calor. The patient reports tenderness to palpation of the medial ankle, but also reports pain to the ankle with PROM of the ankle. Neurovascular status of the right lower extremity is intact.) Course - Vital Signs Last Recorded V/S: Last Vital Signs Temp 36.9 C 03/26/20 02:20 Pulse 100 03/26/20 02:20 Resp 18 03/26/20 02:20 BP 89/69 L 03/26/20 02:20 Pulse Ox 95 03/26/20 02:20 - Orders/Labs/Meds Orders: Active Orders 24 hr Category Date Time Status Ankle Min 3V Rt [CR] Stat Exams 03/26/20 01:33 Ordered Meds: Medications Discontinued Medications Generic Name Dose Route Start Last Admin Trade Name Freq PRN Reason Stop Dose Admin Doxycycline Hyclate 100 mg 03/26/20 02:00 03/26/20 02:22 Vibramycin PO 03/26/20 02:01 100 mg ONETIME STA Administration - Re-Assessments/Exams Free Text/Narrative Re-Assessment/Exam: 03/26/20 01:34 As above, the patient states that she developed a painful erythematous swelling to the medial aspect of her right ankle about 3 or 4 days ago, and states that the erythema increased for the first 1 to 2 days, and has been decreasing since. While the medial ankle is clearly somewhat swollen and erythematous, there is not much calor on palpation. The patient reports pain to PROM of the ankle, however, I strongly suspect that there is some exaggeration, as the patient is unable to elaborate as to what type of ankle motion induces pain, or specifically where. I do not think the patient has cellulitis, but I am suspecting that she may be experiencing a local inflammatory reaction to an insect bite. She is quite adamant that she has not been bitten by an insect, however. To rule out a traumatic cause, I have ordered x-rays of the right ankle. 03/26/20 01:58 5-view radiographs of the right ankle appear to be grossly normal, with no fractures or dislocations identified. Formal read per the Radiologist pending. Although my suspicion for cellulitis is low, I will start the patient on a 7-day course of doxycycline, 100 mg Q12h. I would also like the patient, however, to treat herself as if this is a local inflammatory reaction to an insect bite, with an [id number] antihistamine and ice packs. I will refer the patient to the clinic, not only to establish a PCP, but also to follow-up, in the event that her symptoms do not improve. Departure - Departure Time of Disposition: 02:07 Disposition: Home, Self-Care 01 Condition: Good Clinical Impression: Insect bite of ankle with local reaction - Discharge Information *PRESCRIPTION DRUG MONITORING PROGRAM REVIEWED*: Not Applicable *COPY OF PRESCRIPTION DRUG MONITORING REPORT IN PATIENT CLAIR: Not Applicable Prescriptions: Doxycycline [Vibra-Tabs] 1 tab PO Q12HR #14 tab Instructions: Insect Bite, Adult, [id number] Referrals: Alyce Avila NP [Ordering Only Provider] - Diana Arellano NP [Nurse Practitioner] - Forms: ED Department Discharge Additional Instructions: You were seen in the emergency room for a painful red swelling to the inside of your right ankle. Work-up in the ER included x-rays of your right ankle, which returned completely normal. No fractures or dislocations were seen. Based on your history, physical exam, and ER x-rays, you are most likely sufferi ng from a local inflammatory reaction to an insect bite. We recommend that you take an [id number]-ncuzssj antihistamine, such as Claritin, Dior, Zyrtec, etc., as directed on the label. We also recommend that you ice the inside of your right ankle for 10 to 15 minutes, 5 times a day. Although cellulitis is unlikely, you have been started on the antibiotic doxycycline, and a prescription for doxycycline has been sent to the [facility], located just south and across the [address] from [facility]. Take 1 tablet of doxycycline every 12 hours, starting this evening, 03/26/2020, as prescribed. Finish the entire prescription unless told otherwise by a doctor. We recommend that you follow-up with Diana Arellano, or one of the other providers in the clinic, to establish a PCP, and to follow-up in the event that your current symptoms do not improve. If any other problems, please do not hesitate to return to the ER. Sepsis Event Note (ED) - Evaluation Sepsis Screening Result: No Definite Risk - Focused Exam Vital Signs: Vital Signs Temp Pulse Resp BP Pulse Ox 03/26/20 02:20 36.9 C 100 18 89/69 L 95 03/26/20 00:46 36.6 C 107 H 20 111/83 100 - My Orders Last 24 Hours: My Active Orders 03/26/20 01:33 Ankle Min 3V Rt [CR] Stat - Assessment/Plan Last 24 Hours: My Active Orders 03/26/20 01:33 Ankle Min 3V Rt [CR] Stat
[2020-03-26] MEDS ORDERED: Doxycycline 100 MG Cap PO STA (02:00)
--- NOTE | 2020-03-26 07:47 | CR ---
Right ankle: 4 views of the right ankle were obtained. Comparison: No previous study. Plantar spur is noted. Ankle mortise is symmetric. No acute fracture, dislocation or other bony abnormality is appreciated. Impression: 1. Plantar spur. 2. Nothing acute is seen on right ankle exam. Diagnostic code #2 This report was dictated in MDT
== END 2020-03-26 02:29 | disposition home or self-care (01) ==
LOC: JD.ED 00:22
DX: S90.561A Insect bite (nonvenomous), right ankle, initial encounter (principal); F41.9 Anxiety disorder, unspecified; F31.9 Bipolar disorder, unspecified; F17.210 Nicotine dependence, cigarettes, uncomplicated; F10.129 Alcohol abuse with intoxication, unspecified; Z88.1 Allergy status to other antibiotic agents; Z88.0 Allergy status to penicillin; Z88.6 Allergy status to analgesic agent; Z88.8 Allergy status to other drugs, medicaments and biological substances; Z79.899 Other long term (current) drug therapy; W57.XXXA Bitten or stung by nonvenomous insect and other nonvenomous arthropods, initial encounter
CPT/HCPCS: 73610; 99283; A9270